=== PATIENT | female | born 1955 | race Caucasian/White ===

== ENCOUNTER → 2017-09-15 | Day surgery (SDC) | payer OTHER ==
[~2017-09-15] VITALS: Ht 167.6 cm; Wt 50.8 kg
[~2017-09-15] MED LIST: ACETAMINOPHEN 1000 MG/100 ML 100 ML IV ONE; ACETAMINOPHEN/HYDROcodone 325 MG/7.5 MG TAB PO PRN; ACIFEX; ACIP20TA19 PO; APREPITANT 40 MG CAP ONE; APREPITANT 40 MG CAP PO ONE; BACITRACIN TOP OINT 15 GM TUBE ONE; BUPIVACAINE/EPINEPHRINE 0.25% 50 ML VIAL ONE; CALC600T34 PO; CALCTAB19 PO; CEPH-460 PO; CHLORHEXIDINE GLUCONATE 2 % 1 PACK (2 CLOTHS) TOPICAL PRN; CIPROFLOXACIN/DEXT 400 MG/200 ML IV ONE; CYAN100025 SL; D3 +TAB PO; DEXAMETHASONE SOD PHOS 4 MG/ML VIAL IV ONE; DO NOT ADM ANY ANTICOAGULANT DRUGS PRN; ESTR2TAB PO; ESTR2TAB4 PO; FEXO15TA PO; HYZA100T4 PO; HYZA50TA2 PO; LACTATED RINGER'S 1000 ML IV PRN; LIDOCAINE HCL 1% PF 5 ML SYRINGE OTHER ONE; METOPROLOL TARTRATE 25 MG TAB PO PRN; MIDAZOLAM HCL 2 MG/2 ML VIAL ONE; MONT10TA4 PO; ONDANSETRON HCL 4 MG/2 ML VIAL IV ONE; ORAC40CA PO; PHENYLEPH/NS 1000 MCG/10 ML SYR IV ONE; POVIDONE IODINE 5% (ANTISEPSIS KIT) 4 APPLICATIONS EACH NARE PRN; PROPOFOL 200 MG/20 ML AMP IV ONE; SODIUM CHLORID 0.9% 500 ML IV PRN; VALA500 PO; VALT500T PO; VITA200C3 PO; VITA400C70 PO; ceFAZolin INJ 1,000 MG VIAL IV ONE; ePHEDrine/NS 25 MG/5 ML SYRINGE IV ONE
--- NOTE | 2017-09-15 09:18 | RADRPT ---
EXAM DATE/TIME: 09/15/2017 08:34 [place] COMPARISON: No previous studies available for comparison. INDICATIONS : Evaluate for pneumonia, pneumothorax or communicable disease. Pre-op, excision squamous cell carcinom a from thigh. MEDICAL HISTORY : Carcinoma, squamous cell. SURGICAL HISTORY : None. ENCOUNTER: Initial ACUITY: 1 day PAIN SCORE: 0/10 LOCATION: Bilateral chest FINDINGS: A single view of the chest demonstrates the lungs to be symmetrically aerated without evidence of mas s, infiltrate or effusion. The cardiomediastinal contours are unremarkable. Osseous structures are intact. CONCLUSION: No acute disease. Jordin Thompson MD FACR on September 15, 2017 at 9:16 Board Certified Radiologist. This report was verified electronically.
[2017-09-15 09:30] LABS: AUTOMATED NEUTROPHIL # 2.6 TH/MM3 (1.8-7.7); BASOPHIL # 0.1 TH/MM3 (0-0.2); HEMOGLOBIN 13.6 GM/DL (11.6-15.3); LYMPH % 42.6 % (9.0-44.0); LYMPHOCYTE # 2.3 TH/MM3 (1.0-4.8); MEAN CELL VOLUME 98.2 FL (80.0-100.0); MEAN CORPUSCULAR HEMOGLOBIN 34.2 PG (27.0-34.0); MEAN CORPUSCULAR HGB CONC 34.9 % (32.0-36.0); MEAN PLATELET VOLUME 6.9 FL (7.0-11.0); MONO % 8.7 % (0.0-8.0); MONOCYTE # 0.5 TH/MM3 (0-0.9); NEUT % 47.7 % (16.0-70.0); PLATELET COUNT 212 TH/MM3 (150-450); RED BLOOD COUNT 3.98 MIL/MM3 (4.00-5.30); RED CELL DISTRIBUTION WIDTH 13.2 % (11.6-17.2); WHITE BLOOD COUNT 5.4 TH/MM3 (4.0-11.0)
[2017-09-15 14:40] VITALS: BP 105/59; PULSE 64; RESP 18; TEMP 97.3; O2SAT 98
--- NOTE | 2017-09-16 17:59 | PD.OP ---
Operative Report Date of Surgery: Sep 15, 2017 Preoperative Diagnosis: (1) Squamous cell carcinoma of thigh Postoperative Diagnosis: (1) Squamous cell carcinoma of thigh Procedure: Wide local excision of bilateral anterior thigh squamous cell carcinomas (88782 , 20638) Complex wound closure of bilateral anterior thigh wounds (66429 x 2, 13813 x 2) Surgeon: Iftikhar Chambers Senior Master Scheduler(s): . Operation and Findings: This is a 62-year-old female who presented with bilateral anterior thigh squamous cell carcinomas, biopsy proven by her instructor knitting. Risks benefits and alternative treatments were discussed. All questions were answered. Patient expressed understanding. Patient elected to assume the risks of wide local excision of above lesions. Informed consent was obtained. The surgical sites were marked in the preoperative holding bay. The patient was given antibiotics on-call to the operating room. The patient was taken to the operating room. All pressure points were padded. A surgical timeout was performed. After the smooth induction of general anesthesia, the surgical resection sites were outlined with a marking pen and instilled with quarter percent Marcaine with epinephrine. The surgical sites were prepped and draped in the usual sterile fashion. Attention was first turned to the left anterior thigh wound. The lesion was excised, marked for orientation, and sent for frozen and permanent pathology. With 1 cm circumferential margins, the defect was roughly 5 cm in diameter. The resection included superficial fascia. A roughly 1-2 mm cutaneous nerve was attempted to be from the mass, though it was not felt to be oncologically prudent. Therefore this nerve was sacrificed as part of the specimen en bloc. Hemostasis was ensured. Attention was then turned to the right anterior thigh wound. This lesion was similarly excised, marked for orientation and sent for frozen and permanent pathology. With 1 cm margins, the defect was roughly 3.2 cm. It was at this time that the frozen section for the first lesion came back as all margins negative. In order to achieve closure of the left anterior thigh wound, significant undermining was performed just below superficial fascia. Hemostasis was ensured. Superficial fascia was reapproximated with interrupted 3-0 Vicryls. The skin was closed with 3-0 Vicryl deep dermals, followed by interrupted 4-0 nylons in a vertical mattress fashion. Following this superior and inferior standing cones were excised. The rest of the wound was closed in a similar fashion. Following this the right anterior thigh wound was closed in the exact same fashion, however with much less undermining. Both surgical sites were cleaned. Both surgical sites were dressed with bacitracin Xeroform gauze dry gauze followed by Aden and an Rayo wrap. The patient was woken up from anesthesia and arrived stable and doing well to the PACU. All needle sponge and instrument counts were correct 2. Iftikhar Chambers MD Sep 16, 2017 17:59
--- NOTE | 2017-09-18 13:53 | EKG ---
Date Performed: 09/15/2017 Time Performed: 08:44:06 PTAGE: 62 years EKG: Sinus rhythm INCOMPLETE RIGHT BUNDLE BRANCH BLOCK MODERATE T-WAVE ABNORMALITY, CONSIDER ANTEROLATERAL ISCHEMIA MO DERATE T-WAVE ABNORMALITY, CONSIDER INFERIOR ISCHEMIA ABNORMAL ECG INTERPRETATION BASED ON A DEFAULT AGE OF 40 YEARS PREVIOUS TRACING : 02/15/2008 14.12 Compared to prior tracing, nonspecific T wave change s are now present. DOCTOR: Emil Del Castillo Interpretating Date/Time 09/18/2017 13:52:34
== END | disposition home or self-care (01) ==
LOC: HSDC 07:57
PROVIDERS: ATTEND Student in an Organized Health Care Education/Training Program
DX: C44.729 Squamous cell carcinoma of skin of left lower limb, including hip (principal); C44.722 Squamous cell carcinoma of skin of right lower limb, including hip; I10 Essential (primary) hypertension
CPT/HCPCS: 00400; 11604; 11606; 13121; 13122; 71045; 85025; 88305; 88331; 93005; J0131; J0690; J1100; J2250; J2370; J2405; J3010; J7120; J8501